=== PATIENT | female | born 1990 | race American Indian/Alaskan Native ===

== ENCOUNTER 2016-10-25 20:48 | Outpatient (CLI) | payer MEDICAID ==
[2016-10-25] MEDS ORDERED: LACTATED RINGERS 1,000 ML IV ONE (21:07)
[2016-10-25 21:56] VITALS: BP 126/74
[2016-10-25] MEDS ORDERED: ZOFRAN IV ONE (22:07)
--- NOTE | 2016-10-26 08:06 | Ultrasound Report ---
ULTRASOUND OB LIMITED History: Abdominal pain and cramping during Technique: Transabdominal ultrasound with Doppler interrogation. Gestation: Single Position: Cephalic Placenta: Posterior, fundal Placental Grade: 1 The inferior tip of the placenta is not clearly identified secondary to the shadowing calvarium. No previa is suspected. Heart Rate: 125 BPM
== END 2016-10-25 22:57 | disposition home or self-care (01) ==
LOC: TRG 20:48
PROVIDERS: ATTEND Obstetrics & Gynecology
DX: O26.893 Other specified pregnancy related conditions, third trimester (principal); R10.9 Unspecified abdominal pain; R25.2 Cramp and spasm; O47.03 False labor before 37 completed weeks of gestation, third trimester; Z3A.35 35 weeks gestation of pregnancy
CPT/HCPCS: 76815; J2405; 96360

== ENCOUNTER 2018-11-11 12:18 | Outpatient (CLI) | payer MEDICAID ==
[2018-11-11] MEDS ORDERED: LACTATED RINGERS 1,000 ML IV ONE (12:27)
[2018-11-11 13:38] LABS: Bacteria,Urine 4+ /HPF (Negative); Bilirubin,Urine NEG (Negative); Blood,Urine NEG (Negative); Color,Urine Yellow (Yellow); Mucus,Urine FEW /HPF; Protein,Urine <15 mg/dL mg/dL (Negative); Urobilinogen,Urine < 2.0 mg/dL (<2.0)
[2018-11-11] MEDS ORDERED: BRETHINE SUB-Q ONE (13:59)
[2018-11-11 15:22] VITALS: BP 104/59
== END 2018-11-11 15:40 | disposition home or self-care (01) ==
LOC: TRG 12:18
PROVIDERS: ATTEND Obstetrics & Gynecology
DX: O26.893 Other specified pregnancy related conditions, third trimester (principal); R10.30 Lower abdominal pain, unspecified; Z3A.32 32 weeks gestation of pregnancy
CPT/HCPCS: 36415; 59025; 81001; 82731; 96360; 96372; J3105; J7120

== ENCOUNTER 2018-12-27 11:23 | Outpatient (CLI) | payer MEDICAID ==
[2018-12-27 11:46] VITALS: BP 115/65
== END 2018-12-27 12:31 | disposition home or self-care (01) ==
LOC: TRG 11:23
PROVIDERS: ATTEND Obstetrics & Gynecology
DX: O47.1 False labor at or after 37 completed weeks of gestation (principal); Z3A.38 38 weeks gestation of pregnancy
CPT/HCPCS: 59025

== ENCOUNTER 2018-12-29 01:00 | Outpatient (CLI) | payer MEDICAID ==
[2018-12-29 01:35] VITALS: BP 112/71
== END 2018-12-29 02:33 | disposition home or self-care (01) ==
LOC: TRG 01:00
PROVIDERS: ATTEND Obstetrics & Gynecology
DX: O47.1 False labor at or after 37 completed weeks of gestation (principal); Z3A.39 39 weeks gestation of pregnancy
CPT/HCPCS: 59025

== ENCOUNTER 2018-12-30 20:40 | Inpatient (IN) | payer MEDICAID ==
[2018-12-30] MEDS ORDERED: LACTATED RINGERS 2,000 ML ONE (20:50)
[2018-12-30] MEDS ORDERED: BRETHINE IVP PRN (21:15)
[2018-12-30] MEDS ORDERED: BRETHINE SUB-Q PRN (21:15)
[2018-12-30] MEDS ORDERED: SUBLIMAZE IV PRN (21:15)
[2018-12-30] MEDS ORDERED: STADOL IV PRN (21:15)
[2018-12-30] MEDS ORDERED: MINERAL OIL PO PRN (21:15)
[2018-12-30] MEDS ORDERED: AMPICILLIN/NS 2 GM/100 ML 2 GM/100 ML BAG IV ONE (21:15)
[2018-12-30] MEDS ORDERED: ZOFRAN IV PRN (21:15)
[2018-12-30] MEDS ORDERED: NARCAN 0.4 MG/1 ML IV PRN (21:15)
[2018-12-30] MEDS ORDERED: XYLOCAINE 2% INFILTRATI ONE (21:15)
[2018-12-30 21:39] LABS: Hematocrit 28.7 % (30.3-42.9); Hemoglobin 9.6 gm/dl (10.1-14.3); Mean Corpuscular HGB Conc 34 % (30-34); Mean Corpuscular Volume 85 fl (79-97); Platelet Count 195 K/mm3 (140-440); Red Blood Count 3.38 M/mm3 (3.65-5.03); Red Cell Distribution Width 16.5 % (13.2-15.2)
[2018-12-30] MEDS ORDERED: PITOCin/NS 20 UNIT/1000ML DRIP 20 UNITS/1,000 ML BAG IV SCH (22:00)
[2018-12-30] MEDS ORDERED: LACTATED RINGERS 1,000 ML IV SCH (22:00)
[2018-12-30] MEDS ORDERED: PITOCin/NS 30 UNIT/500ML 30 UNITS/500 ML BAG IV SCH (22:00)
--- NOTE | 2018-12-30 22:10 | History and Physical Report ---
History of Present Illness Date of examination: 12/30/18 Date of admission: 12/30/18 20:40 Chief complaint: Contractions History of present illness: The patient is a 28 yo who presents reporting contractions. She denies LOF or bleeding, affirms positive movement. She received care with [facility] dispatch associate. Her has been complicated by an inguinal hernia, anemia, and a UTI that was cured. She is GBS positive. Past History Past Medical History: no pertinent history Past Surgical History: no surgical history Social history: no significant social history - Obstetrical History Expected Date of Delivery: 01/04/19 Actual Gestation: 39 Week(s) 2 Day(s) : 2 Para: 1 Hx # Term Pregnancies: 1 Number of Living Children: 1 Medications and Allergies Allergies Allergy/AdvReac Type Severity Reaction Status Date / Time No Known Allergies Allergy Unverified 12/16/15 13:58 Home Medications Medication Instructions Recorded Confirmed Last Taken Type Tablet 1 tab PO DAILY 05/11/16 11/11/18 05/10/16 History Active Meds: Active Medications Butorphanol Tartrate (Stadol) 2 mg IV Q2H PRN PRN Reason: Pain , Severe (7-10) Ephedrine Sulfate (Ephedrine Sulfate) 10 mg IV Q2M PRN PRN Reason: Hypotension Fentanyl (Sublimaze) 100 mcg IV Q2H PRN PRN Reason: Labor Pain Oxytocin/Sodium Chloride (Pitocin/Ns 20 Unit/1000ml Drip) 20 units in 1,000 mls @ 125 mls/hr IV DIRECT RAO Oxytocin/Sodium Chloride (Pitocin/Ns 30 Unit/500ml) 30 units in 500 mls @ 4 mls/hr IV TITR RAO; Protocol Lactated Ringer's (Lactated Ringers) 1,000 mls @ 125 mls/hr IV DIRECT RAO Ampicillin Sodium (Ampicillin/Ns 2 Gm/100 Ml) 2 gm in 100 mls @ 100 mls/hr IV ONCE ONE; Protocol Stop: 12/30/18 22:14 Ampicillin Sodium (Ampicillin/Ns 1 Gm/50 Ml) 1 gm in 50 mls @ 100 mls/hr IV Q4HR RAO; Protocol Mineral Oil (Mineral Oil) 30 ml PO QHS PRN PRN Reason: Constipation Naloxone HCl (Narcan 0.4 Mg/1 Ml) 0.1 mg IV Q2MIN PRN PRN Reason: Res Rate </= 8 or 02 SAT < 92% Ondansetron HCl (Zofran) 4 mg IV Q8H PRN PRN Reason: Nausea And Vomiting Terbutaline Sulfate (Brethine) 0.25 mg SUB-Q ONCE PRN PRN Reason: Hyperstimulation/Hypertonicity Terbutaline Sulfate (Brethine) 0.25 mg IVP ONCE PRN PRN Reason: Hyperstimulation/Hypertonicity Review of Systems All systems: negative - Physical Exam Breasts: Positive: normal Lungs: Positive: Normal air movement Abdomen: Positive: normal appearance (gravid), soft Genitourinary (Female): Positive: normal external genitalia, normal perenium Vagina: Positive: normal moisture Uterus: Positive: enlarged (gravid), normal contour Extremities: Positive: normal - Obstetrical FHR: category 1 Uterine Contraction Monitor Mode: External Cervical Dilatation: 7 Cervical Effacement Percentage: 80 station: -2 Uterine Contraction Frequency (min): 3-5 Uterine Contraction Pattern: Regular Results Result Diagrams: 12/30/18 21:23 Abnormal lab results 12/30/18 Range/Units 21:23 RBC 3.38 L (3.65-5.03) M/mm3 Hgb 9.6 L (10.1-14.3) gm/dl Hct 28.7 L (30.3-42.9) % RDW 16.5 H (13.2-15.2) % All other labs normal. Assessment and Plan A: 28 yo at 39.2 wks EGA in active labor GBS positive, membranes intact P: Admit to L&D Administer Ampicillin prophylaxis Expectant management, anticipate
--- NOTE | 2018-12-30 23:16 | Event Note ---
Date: 12/30/18 (2242) Pt reports increasing pressure and pain during contractions. SVE /-2. Discussed r/b/a of AROM, pt elects for it. AROM at 2242 clear fluid, tolerated well, FHT category 1 throughout.
[2018-12-31] MEDS ORDERED: ZOFRAN IV ONE (00:09)
[2018-12-31] MEDS ORDERED: BENADRYL PO PRN (00:18)
[2018-12-31] MEDS ORDERED: NORCO 5/325 PO PRN (00:18)
[2018-12-31] MEDS ORDERED: ZOFRAN IV PRN (00:18)
[2018-12-31] MEDS ORDERED: CYTOTEC PR PRN (00:18)
[2018-12-31] MEDS ORDERED: TYLENOL PO PRN (00:18)
[2018-12-31] MEDS ORDERED: MILK OF MAGNESIA PO PRN (00:18)
[2018-12-31] MEDS ORDERED: PHENERGAN PR PRN (00:18)
[2018-12-31] MEDS ORDERED: TUCKS PAD TP PRN (00:18)
[2018-12-31] MEDS ORDERED: LANSINOH TP PRN (00:18)
[2018-12-31] MEDS ORDERED: DULCOLAX PR PRN (00:18)
[2018-12-31] MEDS ORDERED: PHENERGAN PO PRN (00:18)
--- NOTE | 2018-12-31 00:39 | Procedure Note ---
OB Delivery Note - Delivery Date of Delivery: 12/31/18 Surgeon: DANICA BRYANT ([facility]) Estimated blood loss: 200cc - Vaginal Delivery position: OA Intrapartum events: none Delivery induction: none Delivery augmentation: rupture of membranes Delivery monitor: external FHT, external uterine Route of delivery: Delivery placenta: expressed Delivery cord: 3 umbilical vessels Episiotomy: none Delivery laceration: none Anesthesia: none Delivery comments: Excellent maternal effort resulted in of viable male infant at 2357. Pushing commenced at 2338, bladder emptied via straight cath in sterile fashion at 2345. Head delivered OA at 2356, restituted LOT, shoulders followed easily. Apgars 8/9. Placenta delivered intact at 0004. No lacerations noted, EBL 200 mL. Mother and bonding, breast feeding. - Infant A at 1 minute: 8 at 5 minutes: 9 Gender: Male
[2018-12-31] MEDS ORDERED: SODIUM CHLORIDE FLUSH SYRINGE 10 ML IV NR (01:00)
[2018-12-31] MEDS ORDERED: AMPICILLIN/NS 1 GM/50 ML 1 GM/50 ML BAG IV SCH (01:17)
[2018-12-31] MEDS: IBUPROFEN PO SCH ×4 (05:54→23:55)
--- NOTE | 2018-12-31 09:49 | Progress Note ---
Assessment and Plan A: PPD1 s/p Vital signs and labs stable P: Continue current care. Discharge to home tomorrow. Subjective - Subjective Date of service: 12/31/18 Principal diagnosis: Interval history: The patient is PPD1 s/p without laceration, EBL 200mL. Patient reports: appetite normal, voiding normally, pain well controlled, ambulating normally [place]: doing well, nursing well, bottle feeding (supplementary) Objective - Vital Signs Latest vital signs: Vital Signs Temp Pulse Resp BP Pulse Ox 12/31/18 07:57 98.5 F 78 20 114/58 93 12/31/18 06:54 18 12/31/18 05:54 18 12/31/18 03:23 98.2 F 67 18 110/58 98 12/31/18 01:16 68 121/72 12/31/18 01:01 67 124/78 12/31/18 00:46 69 124/73 12/31/18 00:31 74 121/75 12/31/18 00:16 75 123/73 12/30/18 22:26 70 114/67 Intake and Output 12/30/18 12/31/18 12/31/18 23:59 07:59 15:59 Intake Total 370 Output Total 900 Balance -530 Intake: IV 10 Right Forearm 10 Oral 360 Output: Urine 900 Void 900 Other: Total, Intake Amount 240 Total, Output Amount 400 Weight 176 lb Estimated Blood Loss 200 - Exam Cardiovascular: Present: Regular rate, Normal S1, Normal S2, No murmurs Lungs: Present: Clear to auscultation, Normal air movement Abdomen: Present: normal appearance, soft. Absent: tenderness, guarding Uterus: Present: normal, firm, fundal height below umbilicus Extremities: Present: normal - Labs Labs: Abnormal lab results 12/30/18 Range/Units 21:23 RBC 3.38 L (3.65-5.03) M/mm3 Hgb 9.6 L (10.1-14.3) gm/dl Hct 28.7 L (30.3-42.9) % RDW 16.5 H (13.2-15.2) %
--- NOTE | 2018-12-31 09:50 | Discharge Summary ---
Providers - Providers Date of Admission: 12/30/18 20:40 Date of discharge: 01/01/19 Attending physician: ASHLIE MEADOWS 12/31/18 00:27 Consult to Buffer Nickel [CONS] Routine Reason For Exam: assistance with , SNS Primary care physician: ASHLIE MEADOWS Hospitalization Reason for admission: active labor Delivery: Episiotomy: none Laceration: none Other procedures: none complications: none Discharge diagnosis: IUP at term delivered [place] baby: male Condition at discharge: Good Disposition: DC-01 TO HOME OR SELFCARE Plan - Discharge Medications Prescriptions: Docusate Sodium [Colace] 100 mg PO BID PRN #30 capsule PRN Reason: Constipation Ibuprofen [Motrin] 600 mg PO Q6H #60 tab - Provider Discharge Summary Activity: routine, no sex for 6 weeks, no heavy lifting 4 weeks, no strenuous exercise Diet: routine Instructions: routine Additional instructions: [] Smoking cessation referral if applicable(refer to patient education folder for contact #) [] Refer to [facility]'s [facility] Booklet Call your doctor immediately for: * Fever > 100.5 * Heavy vaginal bleeding ( >1 pad per hour) * Severe persistent headache * Shortness of breath * Reddened, hot, painful area to leg or breast * Drainage or odor from incision. * Keep incision clean and dry at all times and follow doctor's instructions regarding bathing/showering - Follow up plan Follow up: DANICA BRYANT CNM [Advanced Practice Nurse] - 6 Weeks (Please call to schedule appointment)
[2018-12-31] MEDS: PRENATAL VITAMIN PO SCH (10:37)
[2018-12-31] MEDS: COLACE PO SCH ×2 (10:37→23:55)
[2018-12-31] MEDS: FEOSOL PO SCH ×2 (12:33→23:55)
[2018-12-31 14:22] LABS: Hematocrit 26.9 % (30.3-42.9); Hemoglobin 8.9 gm/dl (10.1-14.3)
[2019-01-01] MEDS: IBUPROFEN PO SCH ×3 (05:20→17:35)
[2019-01-01] MEDS: PRENATAL VITAMIN PO SCH (09:59)
[2019-01-01] MEDS: FEOSOL PO SCH ×2 (09:59→21:43)
[2019-01-01] MEDS: COLACE PO SCH ×2 (09:59→21:43)
[2019-01-02] MEDS: IBUPROFEN PO SCH ×3 (00:10→14:10)
--- NOTE | 2019-01-02 08:04 | Progress Note ---
Assessment and Plan A/P PPD2 vss cbc 9.6 to 8.9 on iron d/c home in 4 weeks Subjective - Subjective Date of service: 01/02/19 Principal diagnosis: Patient reports: appetite normal, voiding normally, pain well controlled, flatus, ambulating normally [place]: doing well Objective - Vital Signs Latest vital signs: Vital Signs Temp Pulse Resp BP BP Pulse Ox 01/01/19 23:55 98.5 F 71 20 130/79 100 01/01/19 16:34 98.4 F 65 18 113/65 Intake and Output 01/01/19 01/02/19 01/02/19 23:59 07:59 15:59 Intake Total 480 360 Balance 480 360 Intake: Oral 480 Intake, Free Water 360 Other: Total, Intake Amount 480 Voiding Method Toilet # Voids Void 1 2 - Exam Breasts: Present: normal Cardiovascular: Present: Regular rate, Normal S1 Lungs: Present: Clear to auscultation, Normal air movement Abdomen: Present: normal appearance, soft, normal bowel sounds. Absent: distention, tenderness, guarding Uterus: Present: normal, firm, fundal height below umbilicus. Absent: bogginess, tenderness Extremities: Present: normal Deep Tendon Reflex Grade: Normal +2
--- NOTE | 2019-01-02 08:06 | Discharge Summary ---
Providers - Providers Date of Admission: 12/30/18 20:40 Date of discharge: 01/02/19 Attending physician: ASHLIE MEADOWS 12/31/18 00:27 Consult to [employer] Associate [CONS] Routine Reason For Exam: assistance with , SNS Primary care physician: ASHLIE MEADOWS Hospitalization Reason for admission: active labor Delivery: Episiotomy: none Laceration: none Incision: normal, dry, intact Other procedures: none complications: none Discharge diagnosis: IUP at term delivered baby: male Pertinent studies: unremarkable hospital course Condition at discharge: Good Disposition: DC-01 TO HOME OR SELFCARE Plan - Discharge Medications Prescriptions: Docusate Sodium [Colace] 100 mg PO BID PRN #30 capsule PRN Reason: Constipation Ferrous Sulfate [Feosol 325 MG tab] 325 mg PO BID #30 tablet Ibuprofen [Motrin] 600 mg PO Q6H #60 tab - Provider Discharge Summary Activity: routine, no sex for 6 weeks, no strenuous exercise Diet: routine Instructions: routine Additional instructions: [] Smoking cessation referral if applicable(refer to patient education folder for contact #) [] Refer to [facility]'s [facility] Booklet Call your doctor immediately for: * Fever > 100.5 * Heavy vaginal bleeding ( >1 pad per hour) * Severe persistent headache * Shortness of breath * Reddened, hot, painful area to leg or breast * Drainage or odor from incision. * Keep incision clean and dry at all times and follow doctor's instructions regarding bathing/showering - Follow up plan Follow up: DANICA BRYANT CNM [Advanced Practice Nurse] - 01/25/19 (Please call to schedule appointment)
[2019-01-02 09:10] VITALS: BP 113/65
[2019-01-02] MEDS: FEOSOL PO SCH (10:14)
[2019-01-02] MEDS: PRENATAL VITAMIN PO SCH (10:14)
[2019-01-02] MEDS: COLACE PO SCH (10:14)
== END 2019-01-02 15:30 | disposition home or self-care (01) | DRG 775 ==
LOC: LD 20:40 → OB 12-31 03:10
PROVIDERS: ADMIT Obstetrics & Gynecology; ATTEND Obstetrics & Gynecology
PROC: 10907ZC Drainage of Amniotic Fluid, Therapeutic from Products of Conception, Via Natural or Artificial Opening (ICD-10-PCS; 2018-12-30)
PROC: 10E0XZZ Delivery of Products of Conception, External Approach (ICD-10-PCS; principal; 2018-12-31)
DX: O99.824 Streptococcus B carrier state complicating childbirth (principal); Z3A.39 39 weeks gestation of pregnancy; Z37.0 Single live birth; Z79.899 Other long term (current) drug therapy
CPT/HCPCS: 36415; 85014; 85018; 85027; 86850; 86900; 86901; 96360; 96365; G0378; J0290; J2405; J2590; J7120